=== PATIENT | female | born 1995 | race Caucasian/White ===

== ENCOUNTER 2024-07-27 21:10 | Inpatient (IN) | payer BC ==
[2024-07-27] MEDS ORDERED: Nalbuphine 10 MG/1 ML Vial IVPUSH PRN (22:10)
[2024-07-27] MEDS ORDERED: Ondansetron 4 MG/2 ML SDV IVPUSH PRN (22:10)
[2024-07-27] MEDS ORDERED: Lidocaine 1% 50 ML MDV INJECT PRN (22:10)
[2024-07-27] MEDS ORDERED: Sodium Chloride 0.9% 10 ML Syringe FLUSH PRN (22:10)
[2024-07-27] MEDS ORDERED: Oxytocin/0.9 % Sodium Chloride 30 UNIT/500 ML BAG IV SCH (22:15)
[2024-07-27 22:30] LABS: BASOPHILS PERCENT AUTO 0.2 % (0.0-1.0); EOSINOPHILS ABSOLUTE AUTO 0.1 K/mm3 (0.0-0.4); EOSINOPHILS PERCENT AUTO 0.7 % (0.0-6.0); HEMATOCRIT 38.9 % (37.0-47.0); HEMOGLOBIN 12.9 gm/dl (12.0-16.0); IMMATURE GRAN ABSOLUTE AUTO 0.04 K/mm3 (0.00-0.05); IMMATURE GRAN PERCENT AUTO 0.4 % (0.0-0.4); LYMPHOCYTES ABSOLUTE AUTO 3.4 K/mm3 (1.0-4.8); LYMPHOCYTES PERCENT AUTO 30.6 % (24.0-44.0); MEAN CORPUSCULAR HEMOGLOBIN 29.2 pg (28.0-32.0); MEAN CORPUSCULAR HGB CONC 33.2 g/dl (32.0-36.0); MEAN PLATELET VOLUME 10.8 fl (9.4-12.3); MONOCYTES ABSOLUTE AUTO 0.6 K/mm3 (0.0-0.8); MONOCYTES PERCENT AUTO 5.2 % (0.0-8.0); NEUTROPHILS PERCENT AUTO 62.9 % (41.0-71.0); PLATELET COUNT,PLT 190 K/mm3 (150-400); RED BLOOD CELL COUNT 4.42 M/mm3 (4.10-5.30); WHITE BLOOD CELL COUNT,WBC 11.05 K/mm3 (3.9-11.3)
[2024-07-28] MEDS ORDERED: Bupivacaine 0.25% 10 ML SDV ONE (07:00)
[2024-07-28] MEDS: Lactated Ringers 1,000 ML IV SCH (08:29)
[2024-07-28] MEDS ORDERED: Sodium Chloride 0.9% 10 ML Syringe FLUSH SCH ×2 (09:00→21:00)
[2024-07-28] MEDS ORDERED: Bupivacaine/fentaNYL/NS 100 ML Bag EPIDUR PRN (13:36)
[2024-07-28] MEDS ORDERED: ePHEDrine 50 MG/ML SDV IVPUSH PRN ×2 (13:36→22:50)
[2024-07-28] MEDS ORDERED: diphenhydrAMINE 50 MG/ML SDV IVPUSH PRN ×3 (13:36→22:50)
[2024-07-28] MEDS: Bupivacaine/fentaNYL/NS 100 ML Bag EPIDUR PRN (13:59)
[2024-07-28] MEDS: fentaNYL 100 MCG/2 ML SDV EPIDUR PRN (14:00)
[2024-07-28] MEDS: Oxytocin/0.9 % Sodium Chloride 30 UNIT/500 ML BAG IV SCH (15:00)
[2024-07-28] MEDS ORDERED: GENTAMICIN IV SCH (18:30)
[2024-07-28] MEDS ORDERED: SODIUM CHLORIDE 0.9% IV SCH (18:30)
[2024-07-28] MEDS: Ampicillin 2 GM in Sodium Chloride 0.9% 100 ML IV SCH (18:34)
[2024-07-28] MEDS ORDERED: Acetaminophen 325 MG Tab PO PRN (18:40)
[2024-07-28] MEDS: Acetaminophen 325 MG Tab PO ONE (18:48)
[2024-07-28] MEDS: GENTAMICIN IV SCH (19:05)
[2024-07-28] MEDS: SODIUM CHLORIDE 0.9% IV SCH (19:05)
[2024-07-28] MEDS ORDERED: Sodium Chloride 0.9% 10 ML Syringe FLUSH PRN (19:38)
[2024-07-28] MEDS ORDERED: ceFAZolin 2 GM in Sodium Chloride 0.9% 50 ML IV ONE (19:38)
[2024-07-28] MEDS ORDERED: Lactated Ringers 1,000 ML IV SCH (19:45)
[2024-07-28] MEDS ORDERED: Clindamycin Phosphate in D5W 900 MG in Premix Bag 1 BAG IV SCH (19:45)
[2024-07-28] MEDS ORDERED: Azithromycin 500 MG Vial ONE (19:54)
[2024-07-28] MEDS ORDERED: Sodium Chloride 0.9% 250 ML ONE (19:55)
[2024-07-28] MEDS: Azithromycin 500 MG in Sodium Chloride 0.9% 250 ML IV ONE (19:59)
[2024-07-28] MEDS: Citric Acid/Sodium Citrate Solution 30 ML Cup PO ONE (20:01)
[2024-07-28] MEDS: Metoclopramide 10 MG/2 ML SDV IVPUSH ONE (20:01)
[2024-07-28] MEDS ORDERED: Morphine PF 10 MG/10 ML SDV ONE (20:08)
[2024-07-28] MEDS ORDERED: ePHEDrine 50 MG/ML SDV ONE (20:19)
[2024-07-28] MEDS ORDERED: ceFAZolin 2 GM Vial ONE (20:25)
[2024-07-28] MEDS ORDERED: Midazolam 1 MG/ML 2 ML SDV ONE (20:28)
[2024-07-28] MEDS ORDERED: Flumazenil 0.1 MG/ML 5 ML MDV ONE (20:53)
[2024-07-28] MEDS ORDERED: Phenylephrine 1% 10 MG/ML SDV ONE (20:58)
[2024-07-28] MEDS ORDERED: Ondansetron 4 MG/2 ML SDV ONE (20:58)
[2024-07-28] MEDS ORDERED: Sodium Chloride 0.9% 100 ML ONE (20:58)
[2024-07-28] MEDS ORDERED: Lactated Ringers 1,000 ML ONE ×2 (21:03→21:17)
[2024-07-28] MEDS ORDERED: fentaNYL 100 MCG/2 ML SDV IVPUSH PRN (21:37)
[2024-07-28] MEDS ORDERED: Meperidine 50 MG/ML Vial IVPUSH PRN (21:37)
[2024-07-28] MEDS ORDERED: Ondansetron 4 MG/2 ML SDV IVPUSH PRN (21:37)
[2024-07-28 22:31] LABS: BASOPHILS PERCENT AUTO 0.2 % (0.0-1.0); EOSINOPHILS PERCENT AUTO 0.1 % (0.0-6.0); HEMATOCRIT 30.5 % (37.0-47.0); HEMOGLOBIN 10.2 gm/dl (12.0-16.0); IMMATURE GRAN ABSOLUTE AUTO 0.07 K/mm3 (0.00-0.05); IMMATURE GRAN PERCENT AUTO 0.4 % (0.0-0.4); LYMPHOCYTES PERCENT AUTO 10.9 % (24.0-44.0); MEAN CORPUSCULAR HEMOGLOBIN 29.1 pg (28.0-32.0); MEAN CORPUSCULAR HGB CONC 33.4 g/dl (32.0-36.0); MEAN CORPUSCULAR VOLUME 86.9 fl (83.0-99.0); MEAN PLATELET VOLUME 10.7 fl (9.4-12.3); MONOCYTES ABSOLUTE AUTO 1.1 K/mm3 (0.0-0.8); MONOCYTES PERCENT AUTO 6.1 % (0.0-8.0); NEUTROPHILS PERCENT AUTO 82.3 % (41.0-71.0); PLATELET COUNT,PLT 154 K/mm3 (150-400); RED BLOOD CELL COUNT 3.51 M/mm3 (4.10-5.30)
[2024-07-28] MEDS ORDERED: Oxytocin/0.9 % Sodium Chloride 30 UNIT/500 ML BAG IV SCH (22:50)
[2024-07-28] MEDS ORDERED: Naloxone 0.4 MG/ML SDV IVPUSH PRN (22:50)
[2024-07-28] MEDS ORDERED: oxyCODONE 5 MG Tab PO PRN ×2 (22:50)
[2024-07-28] MEDS ORDERED: Dextrose 5%-Lactated Ringers 1,000 ML IV SCH (22:50)
[2024-07-28] MEDS ORDERED: Hydrocortisone Acetate 25 MG Supp RECTAL PRN (22:50)
[2024-07-28] MEDS ORDERED: Magnesium Hydroxide 400 MG/5 ML Susp 30 ML Cup PO PRN (22:50)
[2024-07-28] MEDS ORDERED: Ondansetron 4 MG Tab.DIS PO PRN (22:50)
[2024-07-28 22:52] LABS: INR 0.97; PROTHROMBIN TIME 10.3 SECONDS (9.7-12.0)
[2024-07-28 23:06] LABS: D-DIMER QUANTITATIVE 8.25 mg/L (0.19-0.50)
[2024-07-28] MEDS: Ibuprofen 600 MG Tab PO SCH (23:09)
[2024-07-29] MEDS: Ampicillin 2 GM in Sodium Chloride 0.9% 100 ML IV ONE (00:32)
[2024-07-29] MEDS: Acetaminophen 325 MG Tab PO SCH (02:00)
[2024-07-29] MEDS: Clindamycin Phosphate in D5W 900 MG in Premix Bag 1 BAG IV ONE (05:09)
[2024-07-29 05:58] LABS: HEMATOCRIT 30.1 % (37.0-47.0); HEMOGLOBIN 10.1 gm/dl (12.0-16.0); MEAN CORPUSCULAR HEMOGLOBIN 29.7 pg (28.0-32.0); MEAN CORPUSCULAR HGB CONC 33.6 g/dl (32.0-36.0); MEAN CORPUSCULAR VOLUME 88.5 fl (83.0-99.0); MEAN PLATELET VOLUME 11.2 fl (9.4-12.3); PLATELET COUNT,PLT 157 K/mm3 (150-400); WHITE BLOOD CELL COUNT,WBC 18.32 K/mm3 (3.9-11.3)
[2024-07-29 06:17] LABS: INR 0.95; PROTHROMBIN TIME 10.1 SECONDS (9.7-12.0)
[2024-07-29 06:18] LABS: PTT,PARTIAL THROMBOPLSTIN TIME 25.9 SECONDS (21.7-31.4)
[2024-07-29] MEDS: Docusate Sodium 100 MG Cap PO SCH (09:26)
[2024-07-29] MEDS: Prenatal Multivitamin with Calcium/Folic Acid/Iron Tab PO SCH (09:26)
[2024-07-29] MEDS: Simethicone 80 MG Tab.Chew PO SCH (09:26)
== END 2024-07-30 14:30 | disposition home or self-care (01) | DRG 540 ==
LOC: JD.OBCHECK 21:10 → JD.OB 21:19 → JD.OBCHECK 07-28 00:17 → JD.OB 07-28 00:18 → OBSVTOIN 07-28 20:40 → JD.OB 07-28 20:41
PROVIDERS: ADMIT Obstetrics & Gynecology; ATTEND Obstetrics & Gynecology
PROC: 10D00Z1 Extraction of Products of Conception, Low, Open Approach (ICD-10-PCS; principal; 2024-07-28 08:00)
DX: O34.219 Maternal care for unspecified type scar from previous cesarean delivery (principal); O41.1230 Chorioamnionitis, third trimester, not applicable or unspecified; O48.0 Post-term pregnancy; Z3A.41 41 weeks gestation of pregnancy; Z37.0 Single live birth; O46.93 Antepartum hemorrhage, unspecified, third trimester
CPT/HCPCS: 36415; 51702; 59025; 85025; 85027; 85379; 85384; 85610; 85730; 86592; 86850; 86900; 86901; A9270-GY; J0290; J0456; J0665; J0690; J0736; J1580; J2250; J2274; J2371; J2405; J2765; J3010; J3490; J7120; J7999